=== PATIENT | male | born 1945 | race Caucasian/White ===

== ENCOUNTER 2019-07-27 10:28 | Observation (INO) | payer OTHER ==
[~2019-07-27] VITALS: Ht 167.6 cm; Wt 69.9 kg
--- NOTE | 2019-07-27 10:28 | NUR ---
PATIENT BIBA TO BED 8 AT THIS TIME.
[2019-07-27 10:35] VITALS: BP 114/69
--- NOTE | 2019-07-27 10:45 | NUR ---
74/M BIBA BROUGHT IN FOR CHEST PAIN, EMT STATED HE LOST CONCIOUSSNESS THEY WERE ABOUT TO TRANSPORT HIM. SOB WAS REPORTED BY PT, PAIN OF 4/10 REPORTED NON-RADIATING, CLAMMY AND PALE. CAP REFILL <3SECS. PEDAL PULSES PRESENT, NO SIGNS OF DISSTRESS. CRACKLES HEARD ON LOWER BASES BILATERALLY, NO EDEMA. EKG SHOWED SINUS RHYTHM. PT IS ON 3L NASAL CANNULA PMHX: MS, HTN RX:LISINOPRIL, ATORVASTATIN, CARVEDILOL, LEVOTHYROXINE, ASPIRIN
[2019-07-27] MEDS ORDERED: MORPHINE SULFATE 2 MG/ML SYR IVP ONE ×2 (10:50→12:10)
[2019-07-27] MEDS ORDERED: ONDANSETRON 4 MG/2 ML VIAL IVP ONE (10:50)
[2019-07-27] MEDS ORDERED: NITROGLYCERIN 2% 1 GM PKT TP ONE (10:50)
[2019-07-27] MEDS ORDERED: ATOR40TA40 PO (10:52)
[2019-07-27] MEDS ORDERED: SYN.05 PO (10:52)
[2019-07-27] MEDS ORDERED: CARV3.122 PO (10:52)
[2019-07-27] MEDS ORDERED: ORE25 PO (10:52)
[2019-07-27] MEDS ORDERED: LISI2.5T12 PO (10:52)
[2019-07-27] MEDS ORDERED: ASPI-1718 PO (10:52)
--- NOTE | 2019-07-27 11:03 | NUR ---
LAB AT BEDSIDE
[2019-07-27 11:14] LABS: BASOPHILS % (AUTO) 0.3 % (0.0-2.0); EOSINOPHILS % (AUTO) 0.5 % (0.0-4.0); HEMATOCRIT 40.4 % (36-52); HEMOGLOBIN 13.3 g/dL (12.0-18.0); LYMPHOCYTES % (AUTO) 11.6 % (20.5-51.1); MEAN CORPUSCULAR HEMOGLOBIN 30 pg (27-31); MEAN CORPUSCULAR HGB CONC 33 g/dL (33-37); MEAN CORPUSCULAR VOLUME 91.6 fL (80-94); MONOCYTES # (AUTO) 0.9 K/uL (0.8-1.0); MONOCYTES % (AUTO) 10.4 % (1.7-9.3); NEUTROPHILS # (AUTO) 6.8 K/uL (1.8-7.7); NEUTROPHILS % (AUTO) 77.2 % (42.2-75.2); PLATELET COUNT (AUTO) 223 K/uL (140-450); RED BLOOD CELL COUNT(AUTO) 4.41 MIL/uL (4.20-6.10); RED CELL DISTRIBUTION WIDTH 12.1 % (11.6-13.7); WHITE BLOOD COUNT (AUTO) 8.8 K/uL (4.8-10.8)
[2019-07-27 11:23] LABS: ANION GAP 9.8 (8-16); CARBON DIOXIDE 29.5 mmol/L (21-32); CHLORIDE 105 mmol/L (98-107); CREATININE 1.1 mg/dL (0.7-1.3); GLUCOSE 129 mg/dL (74-106); POTASSIUM 3.3 mmol/L (3.5-5.1); SODIUM SERUM 141 mmol/L (136-145); UREA NITROGEN, BLOOD 20 mg/dL (7-18)
--- NOTE | 2019-07-27 11:30 | NUR ---
DAUGHTER AT BEDSIDE
[2019-07-27 11:38] LABS: ASPARTATE AMINOTRANSFERASE 26 U/L (15-37); TOTAL BILIRUBIN 0.7 mg/dL (0.0-1.0)
--- NOTE | 2019-07-27 12:19 | NUR ---
PT RESTING IN BED AAOX4, REPORTS SHARP LT SIDED CP WHEN HE STANDS UP, REPORTS CP AT 4/10 AT THIS TIME BUT STATES THAT IT IS NOT SHARP. NO N/V OR SOB AT THIS TIME, COLOR WNL, CAP REFIL <3 SEC, NO DISTRESS NOTED. TOOK PT OF NASAL CANNULA, O2 SATURATION AT 94%
[2019-07-27] MEDS ORDERED: LORazepam 2 MG/ML VIAL IVP PRN (12:25)
[2019-07-27] MEDS ORDERED: ACETAMINOPHEN 325 MG TAB PO PRN (12:25)
[2019-07-27] MEDS ORDERED: ONDANSETRON 4 MG/2 ML VIAL IVP PRN (12:25)
[2019-07-27] MEDS ORDERED: HYDROcodone/APAP 5/325 MG 1 TAB TAB PO PRN (12:25)
[2019-07-27] MEDS ORDERED: ALBUTEROL 0.083% 2.5 MG/3 ML NEBU INH PRN (12:25)
[2019-07-27] MEDS ORDERED: MORPHINE SULFATE 4 MG/ML SYR IVP PRN (12:25)
[2019-07-27] MEDS ORDERED: NITROGLYCERIN 0.4 MG TAB SL PRN (12:30)
[2019-07-27 13:00] VITALS: BP 102/58
--- NOTE | 2019-07-27 13:00 | NUR ---
PATIENT WAS TRANSFERRED TO MED-SURG/ TELE. RREPORT GIVEN TO SURY. CHUYITA
--- NOTE | 2019-07-27 13:00 | NUR ---
Received report from Er nurse. Pt came into the room via gurney. Pt is in stable condition. Belongings with patient. IV catheter intact. No signs of distress noted. Call light in reach.
--- NOTE | 2019-07-27 15:00 | NUR ---
Pt is resting in room. Pt is in stable condition. Call light in reach.
[2019-07-27 16:00] VITALS: BP 95/50
[2019-07-27] MEDS: CARVEDILOL 3.125 MG TAB PO SCH (17:00)
--- NOTE | 2019-07-27 17:00 | NUR ---
Pt is resting in bed. Pt is in stable condition. Call light in reach.
--- NOTE | 2019-07-27 19:22 | NUR ---
Shift report given to night patrol inspector nurse. Pt is in stable condition. Family by bedside. Call light in reach.
--- NOTE | 2019-07-27 19:23 | NUR ---
Received endorsement from AM shift RN; patient A/Ox4, able to make needs known, Ghanaian speaking, ambulatory. Son-in-law is with patient; introduced self, updated board. No SOB or distress noted, on O2 1LPM via nasal cannula. IV site on left hand, 20 gauge, saline locked. Skin intact. Bed in the lowest position, call light within reach. Initial assessment done. Will continue to monitor.
[2019-07-27 20:00] VITALS: BP 109/52
--- NOTE | 2019-07-27 20:20 | NUR ---
Vitals taken, no distress noted.
--- NOTE | 2019-07-27 22:30 | NUR ---
Checks made; patient asleep, visible chest rise and fall noted.
--- NOTE | 2019-07-27 23:30 | NUR ---
Vitals taken, no distress noted.
[2019-07-28] VITALS: BP 110/56
--- NOTE | 2019-07-28 00:20 | NUR ---
Potassium given at this time.
[2019-07-28] MEDS ORDERED: POTASSIUM CHLORIDE 10 MEQ TABER PO SCH (01:00)
--- NOTE | 2019-07-28 01:20 | NUR ---
Rounds done; patient asleep, eyes closed, visible chest rise and fall noted.
--- NOTE | 2019-07-28 03:30 | NUR ---
Vitals taken, no distress noted. Assisted patient to the restroom, BM and 400cc urine output noted.
[2019-07-28 04:00] VITALS: BP 141/63
--- NOTE | 2019-07-28 06:20 | NUR ---
Vitals stable, due meds given. Will endorse to AM shift RN for continuity of care.
[2019-07-28] MEDS ORDERED: LEVOTHYROXINE 0.05 MG TAB PO SCH (06:30)
[2019-07-28 06:55] LABS: BASOPHILS % (AUTO) 0.2 % (0.0-2.0); EOSINOPHILS % (AUTO) 0.2 % (0.0-4.0); HEMATOCRIT 39.8 % (36-52); HEMOGLOBIN 13.1 g/dL (12.0-18.0); LYMPHOCYTES # (AUTO) 1.5 K/uL (2.0-11.5); LYMPHOCYTES % (AUTO) 11.1 % (20.5-51.1); MEAN CORPUSCULAR HEMOGLOBIN 30 pg (27-31); MEAN CORPUSCULAR HGB CONC 33 g/dL (33-37); MEAN CORPUSCULAR VOLUME 91.6 fL (80-94); MONOCYTES # (AUTO) 1.5 K/uL (0.8-1.0); MONOCYTES % (AUTO) 11.4 % (1.7-9.3); NEUTROPHILS # (AUTO) 10.3 K/uL (1.8-7.7); NEUTROPHILS % (AUTO) 77.1 % (42.2-75.2); PLATELET COUNT (AUTO) 214 K/uL (140-450); RED BLOOD CELL COUNT(AUTO) 4.34 MIL/uL (4.20-6.10); WHITE BLOOD COUNT (AUTO) 13.4 K/uL (4.8-10.8)
--- NOTE | 2019-07-28 07:20 | NUR ---
RECEIVED BEDSIDE REPORT FROM PERSONNEL RECORDS CLERK NURSE, PT IS AWAKE AND ALERT, NO S/S OF ACUTE DISTRESS, NO SOB. PT IS ON 1 L O2 NC. SKIN IS INTACT. IV SITE L HAND 20 G, SALINE LOCKED. SCD'S ARE ON. FALL PRECAUTIONS IN PLACE, CALL LIGHT WITHIN REACH. WILL CONTINUE TO MONITOR.
[2019-07-28 07:23] LABS: ANION GAP 11.3 (8-16); CARBON DIOXIDE 27.5 mmol/L (21-32); CHLORIDE 101 mmol/L (98-107); GLUCOSE 127 mg/dL (74-106); POTASSIUM 3.8 mmol/L (3.5-5.1); SODIUM SERUM 136 mmol/L (136-145); UREA NITROGEN, BLOOD 14 mg/dL (7-18)
[2019-07-28 07:24] LABS: ASPARTATE AMINOTRANSFERASE 30 U/L (15-37); MAGNESIUM 2.2 mg/dL (1.8-2.4); TOTAL BILIRUBIN 0.7 mg/dL (0.0-1.0)
[2019-07-28 08:00] VITALS: BP 106/55
[2019-07-28] MEDS: CARVEDILOL 3.125 MG TAB PO SCH (08:00)
--- NOTE | 2019-07-28 08:39 | NUR ---
PATIENT HAS BEEN SCREENED AND CATEGORIZED MODERATE NUTRITION RISK. PATIENT WILL BE SEEN WITHIN 3-5 DAYS OF ADMISSION. 07/30/19 08/01/[address]
[2019-07-28] MEDS ORDERED: HYDROCHLOROTHIAZIDE 25 MG TAB PO SCH (09:00)
[2019-07-28] MEDS ORDERED: LISINOPRIL 5 MG TAB PO SCH (09:00)
[2019-07-28] MEDS ORDERED: ATORVASTATIN 20 MG TAB PO SCH (09:00)
[2019-07-28] MEDS ORDERED: ENOXAPARIN 40 MG/0.4 ML SYR SUBQ SCH (09:00)
[2019-07-28] MEDS ORDERED: ASPIRIN 81 MG TAB.CHEW PO SCH (09:00)
--- NOTE | 2019-07-28 09:01 | NUR ---
AM MEDS ADMINISTERED, PT TOLERATED WELL. I HELD THE CARVEDILOL AND LISINOPRIL DUE TO LOW BP (106/55). REMOVED THE NITROGLYCERIN CREAM PATCH FROM 07/27.
--- NOTE | 2019-07-28 11:02 | NUR ---
DC PLANNING: THIS IS A 74 YO MALE PATIENT FROM HOME, ADMITTED DUE TO CHEST PAIN. PAST MEDICAL HISTORY INCLUDE HYPERTHYROIDISM, HTN, HYPERLIPIDEMIA, HEART DISEASE WITH 3 STENTS IN 2016. TROPONIN X3 NEGATIVE. FOR POSSIBLE DC TODAY. Addendum: 07/28/19 at 1309 by Yessica Pope CM DC PLANNING: RECEIVED A CALL FROM [facility] [place] [phone] NOTIFIED HER PT HAS A DC ORDER . [employer] PROVIDE THE AUTH# [id number] FOR CAGE MANAGER. CALL DR DERICK FERNANDES [phone] MADE APPOINTMENT ON Thu08/03/19 AT 10AM AT [address] [facility] [address] [id number] AND PCP WITH CHRISTIAN DE LA O THE [place]DRESS [id number] [facility] [phone] ON Thursday08/02/19 AT 8:30 AM FOR PULMO VISIT WAITING FOR AUTH #
[2019-07-28] MEDS ORDERED: LEVOFLOXACIN 750 MG/D5W PREMIX 150 ML IV ONE (11:05)
[2019-07-28 12:00] VITALS: BP 103/58
--- NOTE | 2019-07-28 12:48 | NUR ---
Matte Cutter Note: Basic Screen: Yes High Risk DC Screen Yes Name: ARTURO FREDERICK Home Relationship: DAUGHTER Pre-Admission Living Arrangements: Lives with Other Prior ADL Independent Current Home Health Name/Tel: N/A Current DME/02 Name/Tel: N/A Current Hospice Name/Tel: N/A Current Dialysis Name/Tel: N/A Healthcare Decision Maker: Patient Advance Directive Yes - REFUSED Information Taught: Advance Directive Person Taught: Patient Teaching Tools: Verbal Factors Affecting Learning: None Participation Level: Active Evaluation: Verbalizes Understanding Needs Additional Education: No Discipline: Pharmacy Tentative Discharge Plan/Destination: No Needs Identified Will require assistance post discharge: No Referred to Spiritual Counselor: No Tentative Discharge Plan Summary: Patient is a 74 year old male admitted for chest pain. Patient has past medical hx of hyperthyroidism, hypertension, hyperlipedimia, and heart disease with 3 stents. SW verified demographics with patient. Patient stated his PCP is Dr. Samantha Baird and his last appointment was last week. Patient reports no mental health history and no substance abuse history. Patient requested for further questions to be directed towards daughter. SW contacted daughter Arturo Frederick [phone] and left voicemail. Patient's tentative plan after discharge is to return home. Signature: ANA PAULA Fernandez Date: Jul 28, 2019 Time: 12:47
--- NOTE | 2019-07-28 16:59 | NUR ---
PT DC'D. PT AND HIS DAUGHTER WERE GIVEN DC INSTRUCTION AND PRESCRIPTION. THEY VERBALIZED UNDERSTANDING. IV SITE AND WRIST BAND WERE REMOVED. PT LEFT WITH ALL HIS BELONGINGS IN STABLE CONDITION.
== END 2019-07-28 17:00 | disposition home or self-care (01) ==
LOC: MED 10:28 → MTU 12:27
PROVIDERS: ADMIT Internal Medicine Pulmonary Disease; ATTEND Internal Medicine Pulmonary Disease
DX: D72.829 Elevated white blood cell count, unspecified (principal); R07.89 Other chest pain; I20.8 Other forms of angina pectoris; I10 Essential (primary) hypertension; E78.5 Hyperlipidemia, unspecified; E07.9 Disorder of thyroid, unspecified; Z79.899 Other long term (current) drug therapy; Z95.5 Presence of coronary angioplasty implant and graft
CPT/HCPCS: 36415; 71045; 80053; 83735; 83880; 84443; 84484; 85025; 87081; 93005; 96372; 96374; 96375; 96376; 99285; G0378; J1650; J2270; J2405; Q0092